=== PATIENT | male | born 2000 | race Two or more races ===

== ENCOUNTER 2018-11-15 15:44 | Emergency (ER) | payer MEDICAID ==
[~2018-11-15] VITALS: Ht 160 cm; Wt 63.5 kg
[~2018-11-15 15:44] MED LIST: BACITRACIN ZIN1 EACH TOPIC; IBUPROFEN600 MG ORAL
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
[2018-11-15 15:58] VITALS: BP 115/71
--- NOTE | 2018-11-15 16:08 | Emergency Room Report ---
History of Present Illness General Chief Complaint: Wound Recheck/Suture Removal Source: Medical Record Present Illness HPI 18 YO Male presents to the ED c/o 3 sutures that need to be removed s/p wound closure to the left side of the forehead last week. pt. UTD with vaccinations. denies pain, bleeding, discharge, erythema or warmth. Patient denies tenderness. Patient denies any other symptoms or aggravating factors at this time. Allergies: Coded Allergies: No Known Allergies (Unverified , 11/07/18) Patient History Past Medical History: see triage record Past Surgical History: none Pertinent Family History: none Immunizations: UTD Reviewed Nursing Documentation: PMH: Agreed; PSxH: Agreed Nursing Documentation-PMH Past Medical History: No History, Except For Review of Systems All Other Systems: negative except mentioned in HPI Physical Exam Vital Signs Date Time Temp Pulse Resp B/P (MAP) Pulse Ox O2 Delivery O2 Flow Rate FiO2 11/15/18 15:48 98.1 66 16 115/71 (86) 99 Room Air Sp02 EP Interpretation: reviewed, normal General Appearance: no apparent distress, alert, GCS 15, non-toxic Head: normocephalic, other - left side of the forehead laceration healed with [address] Eyes: bilateral eye normal inspection, bilateral eye PERRL ENT: hearing grossly normal, normal voice Neck: full range of motion Respiratory: lungs clear, normal breath sounds, speaking full sentences Cardiovascular #1: regular rate, rhythm Musculoskeletal: gait/station normal, normal range of motion, non-tender Neurologic: alert, oriented x3, responsive, motor strength/tone normal, sensory intact, speech normal, grossly normal Psychiatric: judgement/insight normal Skin: normal color, no rash, warm/dry, well hydrated, wd healing/no infection noted - left side of the forehead laceration healed with [address] Medical Decision Making PA Attestation Dr. Montemayor is my supervising Physician whom patient management has been discussed with. Diagnostic Impression: Primary Impression: Encounter for removal of sutures ER Course Pt. presents to the ED c/o 3 sutures that need to be removed s/p wound closure to the left side of the forehead last week. pt. UTD with vaccinations. denies pain, bleeding, discharge, erythema or warmth. Patient denies tenderness. Patient denies any other symptoms or aggravating factors at this time. Ddx considered but are not limited to laceration, tendon injury, cellulitis, dehiscence. Vital signs: are WNL, pt. is afebrile H&PE are most consistent with: healed laceration of the left side of the forehead ORDERS: none required at this time, the diagnosis is clinical ED INTERVENTIONS: - 3 Sutures removed. DISCHARGE: At this time pt. is stable for d/c to home. Will provide printed patient care instructions, and any necessary prescriptions. Care plan and follow up instructions have been discussed with the patient prior to discharge. Last Vital Signs Date Time Temp Pulse Resp B/P (MAP) Pulse Ox O2 Delivery O2 Flow Rate FiO2 11/15/18 15:58 98.1 65 16 115/71 99 Room Air Disposition: HOME, SELF-CARE Condition: Stable Scripts Bacitracin/Polymyxin B Sulfate (BACITRACIN-POLYMYXIN OINTMENT) 28.35 Gm Oint...g. 1 APPLIC TP BID, #28.3 GM Prov: Kayce Brower 11/15/18 Referrals: [facility],REFERRING (PCP) Patient Instructions: Suture Removal, Care After Additional Instructions: Take any previously prescribed medications as directed. Follow up with a Primary Care Provider in 3-5 days, even if your symptoms have resolved. --Please review list of primary care clinics, if you do not already have a primary care provider Return sooner to ED if new symptoms occur, or current symptoms become worse. - Please note that this Emergency Department Report was dictated using DDRdrivetanning drum operator technology software, occasionally this can lead to erroneous entry secondary to interpretation by the dictation equipment. Kayce Brower Nov 15, 2018 16:08
[2018-11-15] MEDS ORDERED: BACITRACIN-P28.35 GM TP (16:09)
[2018-11-15 16:15] VITALS: BP 115/71
--- NOTE | 2018-11-15 16:15 | NUR ---
ED Nurse Note: suture removal done by PA, pt cleared to be d/c per ER provider, pt discharge and aftercare instruction provided w/ prescription, pt education done via discussion and handout, pt left w/ all belongings, wound site intact.
== END 2018-11-15 16:16 | disposition home or self-care (01) ==
LOC: EMR 16:01
DX: S01.81XD Laceration without foreign body of other part of head, subsequent encounter (principal); X58.XXXD Exposure to other specified factors, subsequent encounter; Z48.02 Encounter for removal of sutures
CPT/HCPCS: 99282

== ENCOUNTER 2018-11-19 17:36 | Emergency (ER) | payer MEDICAID ==
[~2018-11-19] VITALS: Ht 160 cm; Wt 63.5 kg
[~2018-11-19 17:36] MED LIST changes: +BACITRACIN-P28.35 GM TP
[2018-11-19 17:42] VITALS: BP 110/70
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
--- NOTE | 2018-11-19 18:00 | Emergency Room Report ---
History of Present Illness General Chief Complaint: Pain Source: Patient Present Illness HPI 18-year-old male with history of left clavicle fracture x11 days here complaining of increased pain since the fracture occurred. 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 Patient is rating the pain 7 out of 10 without radiation denying tingling and numbness, and has been taking ibuprofen for pain as needed. Denies new injury, chest pain, shortness of breath, palpitation, and all other associated symptoms Allergies: Coded Allergies: No Known Allergies (Unverified , 11/07/18) Patient History Past Medical History: see triage record Past Surgical History: unable to obtain Pertinent Family History: none Immunizations: UTD Reviewed Nursing Documentation: PMH: Agreed; PSxH: Agreed Nursing Documentation-PMH Past Medical History: No History, Except For Review of Systems All Other Systems: negative except mentioned in HPI Physical Exam Vital Signs Date Time Temp Pulse Resp B/P (MAP) Pulse Ox O2 Delivery O2 Flow Rate FiO2 11/19/18 17:42 98.1 66 20 110/70 (83) 97 Room Air Sp02 EP Interpretation: reviewed, normal General Appearance: normal inspection, well appearing, no apparent distress Head: normocephalic, atraumatic Eyes: bilateral eye normal inspection, bilateral eye PERRL ENT: normal ENT inspection Neck: normal inspection, full range of motion, supple Respiratory: chest non-tender, lungs clear, no respiratory distress, no wheezing Cardiovascular #1: normal inspection, regular rate, rhythm, no edema, no murmur Gastrointestinal: normal inspection, soft Genitourinary: no CVA tenderness Musculoskeletal: back normal, digits/nails normal, other - Left clavicle tender to palpation Neurologic: normal inspection, alert, oriented x3, responsive Psychiatric: normal inspection, judgement/insight normal, memory normal Skin: normal inspection, normal color, no rash, warm/dry Lymphatic: normal inspection, no adenopathy Procedures Additional Procedure Procedure Narrative Left arm sling applied Medical Decision Making PA Attestation All my diagnosis and treatment plans were reviewed ad discussed with my supervising physician Dr. Lamb Diagnostic Impression: Primary Impression: Nondisplaced fracture of shaft of left clavicle, sequela ER Course 18-year-old male with history of left clavicle fracture x11 days here complaining of increased pain since the fracture occurred. 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 Patient is rating the pain 7 out of 10 without radiation denying tingling and numbness, and has been taking ibuprofen for pain as needed. Denies new injury, chest pain, shortness of breath, palpitation, and all other associated symptoms Ddx considered but are not limited to: Left clavicle fracture, left clavicle sprain, neuropathy secondary to clavicle fracture Vital signs: are WNL, pt. is afebrile H&PE are most consistent with second encounter of left clavicle fracture ORDERS: Naproxen, Voltaren gel, arm sling, no x-ray necessary at this point as it was previously done 11 days ago ED INTERVENTIONS: None required at this time. DISCHARGE: At this time pt. is stable for d/c to home. Will provide printed patient care instructions, and any necessary prescriptions. Care plan and follow up instructions have been discussed with the patient prior to discharge. Follow-up with a primary care provider for referral to Ortho keep sling on at all times avoid strenuous physical activity I highly advised patient to not go back to work for the next couple days and then gave him a note to be excused she has numbness in the left arm return to the emergency room immediately Last Vital Signs Date Time Temp Pulse Resp B/P (MAP) Pulse Ox O2 Delivery O2 Flow Rate FiO2 11/19/18 17:42 98.1 66 20 110/70 97 Room Air Disposition: HOME, SELF-CARE Condition: Stable Scripts Diclofenac Sodium (VOLTAREN) 100 Gm Gel..gram. 2 GM TP TID, #100 GM Prov: Sandra Lemus 11/19/18 Naproxen* (NAPROXEN*) 500 Mg Tablet 500 MG ORAL TWICE A DAY, #60 TAB Prov: Sandra Lemus 11/19/18 Patient Instructions: Clavicle Fracture Additional Instructions: Wear your sling at all times to find that you have not been wearing your sling and applying more pressure to tendons around your fracture have been pulled more than usual follow-up with the primary care provider for further assessment he should not be doing strenuous physical activity with a clavicle fracture Sandra Lmeus Nov 19, 2018 18:00
[2018-11-19] MEDS ORDERED: NAPROXEN500 M2 ORAL (18:01)
[2018-11-19] MEDS ORDERED: VOLTAREN100 G1 TP (18:01)
[2018-11-19 18:11] VITALS: BP 115/78
--- NOTE | 2018-11-19 18:11 | NUR ---
ER DISCHARGE NOTE: Patient is cleared to be discharged per PA, pt is aox4, on room air, with stable vital signs. pt was given dc and prescription instructions, pt was able to verbalize understanding, pt id band removed. pt is able to ambulate with steady gait. pt took all belongings.
== END 2018-11-19 18:11 | disposition home or self-care (01) ==
LOC: EMR 18:02
DX: S42.025D Nondisplaced fracture of shaft of left clavicle, subsequent encounter for fracture with routine healing (principal); X58.XXXA Exposure to other specified factors, initial encounter; Y92.9 Unspecified place or not applicable
CPT/HCPCS: 99282